=== PATIENT | male | born 1955 | race Hispanic/Latino ===

== ENCOUNTER 2017-05-19 03:28 | Emergency (ER) | payer OTHER ==
[2017-05-19 03:34] VITALS: BP 131/58
[2017-05-19 05:18] LABS: Hematocrit 50.1 % (35.5-45.6); Hemoglobin 17.2 gm/dl (11.8-15.2); Mean Corpuscular HGB Conc 34 % (32-34); Mean Corpuscular Hemoglobin 32 pg (28-32); Mean Corpuscular Volume 93 fl (84-94); Platelet Count 224 K/mm3 (140-440); Red Blood Count 5.39 M/mm3 (3.65-5.03); Red Cell Distribution Width 13.2 % (13.2-15.2)
[2017-05-19 05:26] LABS: BUN/Creatinine Ratio 20; Blood Urea Nitrogen 12 mg/dL (9-20); Calcium 9.4 mg/dL (8.4-10.2); Hemolysis Index 15
[2017-05-19 05:36] LABS: INR 0.87 (0.87-1.13)
[2017-05-19 05:37] LABS: Partial Thromboplastin Time 28.3 Sec. (24.2-36.6)
--- NOTE | 2017-05-19 16:30 | Emergency Department Report ---
HPI - General Chief Complaint: Nosebleed Time Seen by Provider: 05/19/17 15:55 - HPI HPI: The patient's is a 61-year-old male presents for evaluation of nose bleeding for the past one day. The patient reports constant severe bleeding from the right naris since yesterday morning. He says his breathing has been resolved for greater than the past 4 hours. He shares that he received an anterior nasal packing at an outlying facility yesterday afternoon. He denies trauma to the nose, easy bruising or bleeding, recurrent epistaxis, postnasal drip, dyspnea, chest pain. ED Past Medical Hx - Past Medical History Previous Medical History?: Yes Hx Hypertension: Yes (nonompliant with meds) - Surgical History Past Surgical History?: Yes Additional Surgical History: arm - Social History Smoking Status: Current Every Day Smoker Substance Use Type: Alcohol - Medications Home Medications: Home Medications Medication Instructions Recorded Confirmed Last Taken Type guaiFENesin [Mucinex] 600 mg PO Q8HR #20 tab.er.12h 05/19/17 Unknown Rx ED Review of Systems ROS: Stated complaint: NOSE BLEED Other details as noted in HPI Constitutional: denies: fever ENT: reports epistaxis denies: throat or neck pain Respiratory: denies: cough, shortness of breath Cardiovascular: denies: chest pain Endocrine: denies unexplained weight loss or gain Gastrointestinal: denies: abdominal pain, nausea Genitourinary: denies: dysuria Musculoskeletal: denies: leg swelling Skin: denies: rash Neurological: denies: headache Hematological/Lymphatic: denies: easy bleeding or easy bruising Psych: denies sadness or hopelessness Physical Exam - Physical Exam Vital Signs: Vital Signs 05/19/17 05/19/17 03:30 03:57 Temperature 98.7 F 98.7 F Pulse Rate 78 86 Respiratory 18 18 Rate Blood Pressure 131/58 131/58 O2 Sat by Pulse 92 98 Oximetry Physical Exam: General: well-nourished, well-developed, no acute distress Head: Normocephalic, atraumatic Eyes: normal sclera ENT: Nasal packing presents to the right nare, no active bleeding, Mucous membranes are pink and moist Neck: trachea midline, neck supple, No neck stiffness, no cervical adenopathy Respiratory: Breath sounds equal bilaterally, no wheezing, rales, or rhonchi Cardio: S1 and S2 present, no murmurs, rubs, gallops, capillary refill is brisk Musc: No pitting edema Skin: No rash Neuro: no facial drooping, normal speech Psych: Normal affect ED Course Vital Signs 05/19/17 05/19/17 03:30 03:57 Temperature 98.7 F 98.7 F Pulse Rate 78 86 Respiratory 18 18 Rate Blood Pressure 131/58 131/58 O2 Sat by Pulse 92 98 Oximetry ED Medical Decision Making - Lab Data Result diagrams: 05/19/17 04:28 05/19/17 04:28 - Medical Decision Making The patient was seen and examined by myself. The patient is placed on a monitor and storage bin tender and continuous pulse ox. On initial evaluation, the patient was found to be in no distress. Evaluation orders were placed. Lab results revealed normal platelets and coags. The patient was reevaluated and found to remain with resolution of epistaxis. The patient is given follow-up ENT. The patient is stable for discharge with outpatient follow-up. The patient is given follow-up and return instructions. The patient expressed understanding and agreed with the plan. The patient is discharged in stable condition. Critical care attestation.: If time is entered above; I have spent that time in minutes in the direct care of this critically ill patient, excluding procedure time. ED Disposition Clinical Impression: Anterior epistaxis Disposition: - TO HOME OR SELFCARE Is pt being admited?: No Does the pt Need Aspirin: No Condition: Stable Instructions: Epistaxis (ED) Prescriptions: guaiFENesin [Mucinex] 600 mg PO Q8HR #20 tab.er.12h Referrals: SUNDAR RIDER MD [Staff Physician] - 3-5 Days Time of Disposition: 16:24
== END 2017-05-19 16:10 | disposition home or self-care (01) ==
LOC: ED 03:28
DX: R04.0 Epistaxis (principal); I10 Essential (primary) hypertension; F17.200 Nicotine dependence, unspecified, uncomplicated
CPT/HCPCS: 36415; 80048; 85027; 85610; 85730; 99284